=== PATIENT | female | born 1975 | race Caucasian/White ===

== ENCOUNTER 2021-02-02 17:00 | Emergency (ER) | payer SELFPAY ==
[2021-02-02 17:06] VITALS: BP 119/77; PULSE 72; BMI 25.0
[2021-02-02] MEDS ORDERED: KETOROLAC TROMETHAMINE 15 MG/ML VIAL IM ONE (17:55)
[2021-02-02] MEDS ORDERED: KETOROLAC TROMETHAMINE 15 MG/ML VIAL ONE (17:57)
[2021-02-02 18:31] LABS: AMORP PHOS 1+ /hpf (NONE SEEN); EPITHELIAL CELLS FEW /hpf
== END 2021-02-02 18:55 | disposition home or self-care (01) ==
LOC: FER 17:00
PROC: 3E0233Z Introduction of Anti-inflammatory into Muscle, Percutaneous Approach (ICD-10-PCS; principal; 2021-02-02)
DX: M54.9 Dorsalgia, unspecified (principal)
CPT/HCPCS: 72220-TC-FY; 81003; 81015; 87086; 99284-25

== ENCOUNTER 2022-02-15 10:03 | Day surgery (SDC) | payer OTHER ==
[2022-02-15] MEDS ORDERED: ACETAMINOPHEN 1000 MG/100 ML BAG IVPB ONE (10:44)
[2022-02-15] MEDS ORDERED: SODIUM CHLORIDE 1,000 ML IV ONE (10:44)
[2022-02-15 10:51] LABS: HCG,QUALITATIVE URINE Negative
[2022-02-15] MEDS ORDERED: ACETAMINOPHEN INJECTION 100 ML IVPB ONE (11:09)
[2022-02-15 11:12] LABS: EPITHELIAL CELLS MODERATE /hpf
[2022-02-15 11:28] LABS: HEMATOCRIT 28.1 % (32.4-45.2); HEMOGLOBIN 9.7 G/dL (10.7-15.3); MCHC 34.4 g/dl (32.0-36.0); MEAN CELL VOLUME 84.3 fl (80-96); MEAN PLT VOLUME 7.1 fl (7.5-11.1); RBC 3.33 10^6/uL (3.60-5.2); RDW 15.6 % (11.6-15.6); WHITE BLOOD COUNT 7.8 10^3/uL (4.0-10.8)
[2022-02-15 11:35] LABS: ALBUMIN 3.4 g/dl (3.4-5.0); BILIRUBIN,TOTAL 0.4 mg/dl (0.2-1); CALCIUM 8.8 mg/dl (8.5-10); CREATININE 0.6 mg/dl (0.55-1.3); TOT PROT 6.1 g/dl (6.4-8.2)
[2022-02-15] MEDS ORDERED: CEFTRIAXONE 2 GM in DEXTROSE 5%-WATER - 50 ML IVPB ONE (15:57)
[2022-02-15] MEDS ORDERED: morphine CARPU-JECT 2 MG/1 ML DISP.SYRIN IVPUSH ONE (16:08)
[2022-02-15] MEDS ORDERED: ACETAMINOPHEN 1000 MG/100 ML BAG IVPB PRN (16:17)
[2022-02-15] MEDS ORDERED: morphine SULFATE 4 MG/ML VIAL ONE (16:19)
[2022-02-15 17:33] LABS: INR 1.29 (0.83-1.09); PROTHROMBIN TIME (PATIENT) 14.9 SEC (9.7-13.0)
[2022-02-15] MEDS ORDERED: cefTRIAXone SODIUM 1 GM VIAL ONE (17:54)
[2022-02-15] MEDS ORDERED: MELATONIN 5 MG TABLETS PO PRN (20:06)
[2022-02-15] MEDS ORDERED: D5-NS + 20 MEQ KCL - 20 MEQ/1,000 ML INFUS.BAG IV SCH ×2 (20:15→23:32)
[2022-02-15 21:43] VITALS: BMI 21.9
[2022-02-15] MEDS ORDERED: MINERAL OIL ENEMA 133 ML ENEMA RC ONE (23:32)
[2022-02-16] MEDS ORDERED: morphine SULFATE 4 MG/ML VIAL IVPUSH PRN ×2 (07:14→19:41)
[2022-02-16 08:11] LABS: CALCIUM 8.5 mg/dl (8.5-10); CREATININE 0.6 mg/dl (0.55-1.3)
[2022-02-16 08:19] LABS: HEMATOCRIT 25.5 % (32.4-45.2); HEMOGLOBIN 8.6 G/dL (10.7-15.3); MCH 28.5 pg (25.7-33.7); MCHC 33.6 g/dl (32.0-36.0); MEAN CELL VOLUME 84.6 fl (80-96); PLATELET COUNT 354.7 10^3/uL (134-434); RBC 3.01 10^6/uL (3.60-5.2); RDW 15.8 % (11.6-15.6); WHITE BLOOD COUNT 7.6 10^3/uL (4.0-10.8)
[2022-02-16] MEDS ORDERED: DEXTROSE 5%-WATER 100 ML IVPB ONE (09:48)
[2022-02-16] MEDS ORDERED: CEFTRIAXONE 2 GM in DEXTROSE 5%-WATER 100 ML IVPB SCH (10:00)
[2022-02-16] MEDS ORDERED: POLYETHYLENE GLYCOL (HEALTHYLAX) 3350 17 GM PACKET PO PRN ×2 (14:00→19:41)
[2022-02-16] MEDS ORDERED: PROMETHAZINE HCL 25 MG/1 ML VIAL IVPUSH PRN ×2 (16:14→19:41)
[2022-02-16] MEDS ORDERED: ONDANSETRON 4 MG/2 ML VIAL IVPUSH PRN ×2 (16:14→19:41)
[2022-02-16] MEDS ORDERED: ACETAMINOPHEN 1000 MG/100 ML BAG IVPB ONE (16:15)
[2022-02-16] MEDS ORDERED: LACTATED RINGERS SOLUTION 1,000 ML IV SCH ×2 (16:15→19:41)
[2022-02-16] MEDS ORDERED: ROCURONIUM BROMIDE 50 MG/5 ML SYRINGE ONE (17:46)
[2022-02-16] MEDS ORDERED: GLYCOPYRROLATE 0.2 MG/1 ML VIAL ONE ×2 (17:47→19:02)
[2022-02-16] MEDS ORDERED: MIDAZOLAM HCL 2 MG/2 ML SINGLE DOSE VIAL ONE (17:47)
[2022-02-16] MEDS ORDERED: PROPOFOL 20 ML ONE (17:47)
[2022-02-16] MEDS ORDERED: LIDOCAINE HCL/PF 2% SDV 5ML VIAL ONE (17:49)
[2022-02-16] MEDS ORDERED: BUPIVACAINE HCL/PF 2.5 MG/ML - 30 ML VIAL IJ ONE (18:13)
[2022-02-16] MEDS ORDERED: ONDANSETRON 4 MG/2 ML VIAL ONE (18:38)
[2022-02-16] MEDS ORDERED: DEXAMETHASONE SOD PHOSPHATE 4 MG/1 ML VIAL ONE (18:38)
[2022-02-16] MEDS ORDERED: KETOROLAC TROMETHAMINE 30 MG/1 ML VIAL ONE (19:02)
[2022-02-16] MEDS ORDERED: NEOSTIGMINE METHYLSULFATE 0.5 MG/1 ML - 10 ML MDV ONE (19:02)
[2022-02-16] MEDS ORDERED: ACETAMINOPHEN 1000 MG/100 ML BAG IVPB PRN ×2 (19:40→19:41)
[2022-02-16] MEDS ORDERED: MELATONIN 5 MG TABLETS PO PRN (19:41)
[2022-02-17 08:12] LABS: HEMOGLOBIN 9.3 G/dL (10.7-15.3); MCH 28.1 pg (25.7-33.7); MEAN PLT VOLUME 7.5 fl (7.5-11.1); PLATELET COUNT 432.4 10^3/uL (134-434); RBC 3.29 10^6/uL (3.60-5.2); RDW 15.7 % (11.6-15.6)
[2022-02-17 08:21] LABS: ALBUMIN 3.2 g/dl (3.4-5.0); BILIRUBIN,TOTAL 0.3 mg/dl (0.2-1); CALCIUM 8.9 mg/dl (8.5-10); CREATININE 0.5 mg/dl (0.55-1.3); TOT PROT 5.9 g/dl (6.4-8.2)
[2022-02-17] MEDS ORDERED: LACTATED RINGERS SOLUTION 1,000 ML IV SCH (09:38)
[2022-02-17] MEDS ORDERED: guaiFENesin 200 MG/10 ML 10 ML UNIT-DOSE CUPS PO PRN (09:38)
[2022-02-17] MEDS ORDERED: ACETAMINOPHEN 1000 MG/100 ML BAG IVPB ONE (11:10)
[2022-02-17] MEDS ORDERED: MAGNESIUM HYDROX 2400MG/30ML ORAL SUSPENSION 30 ML CUP PO PRN (11:14)
[2022-02-17 14:16] VITALS: BP 104/60; PULSE 59; TEMP 98.2
== END 2022-02-17 18:11 | disposition home or self-care (01) ==
LOC: FER 10:03 → FASUSAT 16:26 → FM/S 16:26 → UNDOADMOB 16:27 → FM/S 18:04 → FASUSAT 18:04 → FM/S 20:05 → FASUSAT 20:05 → SUATTDRO 20:05 → FASUSAT 02-17 18:11
PROVIDERS: ATTEND Nurse Practitioner Family
PROC: 0FT44ZZ Resection of Gallbladder, Percutaneous Endoscopic Approach (ICD-10-PCS; principal; 2022-02-15)
DX: K81.0 Acute cholecystitis (principal)
CPT/HCPCS: 36415; 71046-TC-FY; 74176-TC; 76705-TC; 80048; 80053; 81003; 81015; 83690; 84703; 85025; 85027; 85610; 86850; 86900; 86901; 87040; 88304-TC; 94760; 99285-25; C9803-CS; U0003; U0005

== ENCOUNTER 2022-03-16 18:40 | Emergency (ER) | payer OTHER ==
[2022-03-16 18:56] VITALS: BP 111/68; PULSE 66; TEMP 98.5; BMI 21.7
[2022-03-16] MEDS ORDERED: ONDANSETRON 4 MG/2 ML VIAL IVPB ONE (20:43)
[2022-03-16] MEDS ORDERED: SODIUM CHLORIDE 1,000 ML IV ONE (20:43)
[2022-03-16] MEDS ORDERED: ONDANSETRON 4 MG/2 ML VIAL ONE (20:44)
[2022-03-17] MEDS ORDERED: SODIUM CHLORIDE 1,000 ML IV ONE (00:38)
[2022-03-17] MEDS ORDERED: ACETAMINOPHEN 500 MG TABLET (FP) PO ONE (01:28)
[2022-03-17] MEDS ORDERED: ACETAMINOPHEN 500 MG TABLET (FP) ONE (01:33)
[2022-03-17] MEDS ORDERED: ACETAMINOPHEN 160 MG/5 ML *Children Solution PO ONE (01:40)
[2022-03-17] MEDS ORDERED: ACETAMINOPHEN 160 MG/5 ML 473ML BULK BOTTLE ONE (01:46)
[2022-03-17] MEDS ORDERED: ACETAMINOPHEN 650 MG/20.3 ML ORAL SOLUTION (CUPS) PO ONE (01:48)
== END 2022-03-17 02:31 | disposition left against medical advice (07) ==
LOC: FER 18:40
PROC: 3E033GC Introduction of Other Therapeutic Substance into Peripheral Vein, Percutaneous Approach (ICD-10-PCS; principal; 2022-03-16)
PROC: 3E0337Z Introduction of Electrolytic and Water Balance Substance into Peripheral Vein, Percutaneous Approach (ICD-10-PCS; 2022-03-16)
PROC: 3E0337Z Introduction of Electrolytic and Water Balance Substance into Peripheral Vein, Percutaneous Approach (ICD-10-PCS; 2022-03-16)
DX: R10.9 Unspecified abdominal pain (principal); R11.10 Vomiting, unspecified
CPT/HCPCS: 74178-TC; 99284-25; C9803-CS; Q9967; U0003; U0005